=== PATIENT | male | born 1985 | race American Indian/Alaskan Native ===

== ENCOUNTER 2021-09-30 | Emergency (ER) | payer OTHER ==
[2021-09-30] MEDS ORDERED: ONDANSETRON 4 MG/2 ML INJ IV ONE (04:16)
[2021-09-30] MEDS ORDERED: FAMOTIDINE 20 MG/2 ML INJ IV ONE (04:16)
[2021-09-30] MEDS ORDERED: KETOROLAC 30 MG/1 ML INJ IV ONE (04:16)
--- NOTE | 2021-09-30 04:56 | XRay Report ---
CHEST 1 VIEW INDICATION / CLINICAL INFORMATION: cough. COMPARISON: None available. FINDINGS: SUPPORT DEVICES: None. HEART / MEDIASTINUM: No significant abnormality. LUNGS / PLEURA: No significant pulmonary or pleural abnormality. No pneumothorax. ADDITIONAL FINDINGS: No significant additional findings. IMPRESSION: 1. No acute findings. Signer Name: Chastity De La Cruz MD Signed: 09/30/2021 4:52 AM Workstation Name: [id number]
[2021-09-30 05:01] LABS: Basophils % (Auto) 0.5 % (0.0-1.8); Eosinophils # (Auto) 0.1 K/mm3 (0.0-0.4); Eosinophils % (Auto) 1.5 % (0.0-4.3); Lymphocytes # (Auto) 1.6 K/mm3 (1.2-5.4); Lymphocytes % (Auto) 34.2 % (13.4-35.0); Mean Corpuscular HGB Conc 31 % (32-34); Mean Corpuscular Volume 75 fl (84-94); Monocytes # (Auto) 0.4 K/mm3 (0.0-0.8); Monocytes % (Auto) 9.5 % (0.0-7.3); Platelet Count 255 K/mm3 (140-440); Red Blood Count 6.07 M/mm3 (3.65-5.03); Red Cell Distribution Width 16.4 % (13.2-15.2)
[2021-09-30 05:06] LABS: Hemoglobin 14.1 gm/dl (11.8-15.2)
[2021-09-30 05:07] LABS: Hematocrit 45.8 % (35.5-45.6)
[2021-09-30 05:23] LABS: BUN/Creatinine Ratio 15
[2021-09-30 05:35] LABS: Alanine Aminotransferase 20 units/L (7-56); Albumin 4.7 g/dL (3.9-5); Blood Urea Nitrogen 16 mg/dL (9-20); Calcium 9.7 mg/dL (8.4-10.2); Hemolysis Index 8
--- NOTE | 2021-09-30 07:52 | Emergency Department Report ---
<YASMANI LOVE - Last Filed: 09/30/21 07:48> ED N/V/D HPI - General Chief complaint: Nausea/Vomiting/Diarrhea Stated complaint: NOT FEELING WELL Source: patient Mode of arrival: Ambulatory Limitations: No Limitations - History of Present Illness Initial comments: Patient is a 36-year-old -Maltese male with no past medical history presented to the ED with complaint of acute onset persistent nausea and vomiting, diffuse body aches and pains, persistent dry cough, nasal and sinus congestion for the last 3 days after attending a constitution party and eating and drinking during the constitution party. Patient states that other people who attended the constitution party have had similar symptoms. Patient also states that he suspected that he may have been poisoned while at that constitution party and wanted to be evaluated for any exposure to any known drugs. Patient denies dizziness, syncope, chest pain, shortness of breath, fever, chills, sore throat, hematuria, testicular pain, dysuria, urinary frequency and urgency, penile discharge or testicular pain. MD complaint: nausea, vomiting, other (Diffuse body aches and pains, headache, persistent dry cough) -: Sudden, days(s) (3) Description of Vomiting: food contents, watery, bilious Associated Abdominal Pain: No Location: diffuse Radiation: none Severity: moderate Pain Scale: 5 Quality: aching, dull Consistency: intermittent Improves with: none Worsens with: eating, vomiting Context: possible food poisoning Associated Symptoms: denies other symptoms, myalgias, cough, headaches, loss of appetite, malaise, nausea/vomiting. denies: chest pain, diaphoresis, fever/chills, rash, dysuria, shortness of breath, syncope, weakness - Related Data Allergies Allergy/AdvReac Type Severity Reaction Status Date / Time Penicillins Allergy Anaphylaxis Verified 09/30/21 05:06 ED Review of Systems Constitutional: malaise, weakness. denies: chills, fever Eyes: denies: eye pain, eye discharge, vision change ENT: congestion. denies: ear pain, throat pain Respiratory: cough. denies: shortness of breath, wheezing Cardiovascular: denies: chest pain, palpitations Endocrine: no symptoms reported Gastrointestinal: nausea, vomiting. denies: abdominal pain, diarrhea Genitourinary: denies: urgency, dysuria Musculoskeletal: arthralgia, myalgia. denies: back pain, joint swelling Skin: denies: rash, lesions Neurological: headache. denies: weakness, paresthesias Psychiatric: denies: anxiety, depression Hematological/Lymphatic: denies: easy bleeding, easy bruising ED Past Medical Hx - Past Medical History Previous Medical History?: No - Surgical History Past Surgical History?: Yes Additional Surgical History: L humerus bone fx repair ED Physical Exam - General Limitations: No Limitations General appearance: alert, in no apparent distress, anxious - Head Head exam: Present: atraumatic, normocephalic, normal inspection - Eye Eye exam: Present: normal appearance, PERRL, EOMI Pupils: Present: normal accommodation - ENT ENT exam: Present: normal exam, normal orophraynx, mucous membranes moist, TM's normal bilaterally, normal external ear exam - Neck Neck exam: Present: normal inspection, full ROM. Absent: tenderness - Respiratory Respiratory exam: Present: normal lung sounds bilaterally. Absent: respiratory distress, wheezes, rales, rhonchi, chest wall tenderness, accessory muscle use, prolonged expiratory, other - Cardiovascular Cardiovascular Exam: Present: regular rate, normal rhythm, normal heart sounds. Absent: systolic murmur, diastolic murmur, rubs, gallop - GI/Abdominal GI/Abdominal exam: Present: soft, normal bowel sounds. Absent: tenderness, guarding, rebound, hyperactive bowel sounds, hypoactive bowel sounds - Extremities Exam Extremities exam: Present: normal inspection, full ROM, normal capillary refill - Back Exam Back exam: Present: normal inspection, full ROM. Absent: tenderness, CVA tenderness (R), CVA tenderness (L), muscle spasm, vertebral tenderness - Neurological Exam Neurological exam: Present: alert, oriented X3, CN II-XII intact, normal gait, reflexes normal - Psychiatric Psychiatric exam: Present: normal affect, normal mood - Skin Skin exam: Present: warm, dry, intact, normal color. Absent: rash ED Medical Decision Making - Lab Data Result diagrams: 09/30/21 04:40 09/30/21 04:40 - Radiology Data [facility] [address] [place] [address] XRay Report Signed Patient: AYDEE OCHOA MR#: [id number] 43 : 1985 Acct:[id number] Age/Sex: 36 / M ADM Date: 09/30/21 Loc: ED Attending Dr: Ordering Physician: HARJEET COSBY Date of Service: 09/30/21 Procedure(s): XR chest 1V ap Accession Number(s): [id number] cc: HARJEET COSBY Fluoro Time In Minutes: CHEST 1 VIEW INDICATION / CLINICAL INFORMATION: cough. COMPARISON: None available. FINDINGS: SUPPORT DEVICES: None. HEART / MEDIASTINUM: No significant abnormality. LUNGS / PLEURA: No significant pulmonary or pleural abnormality. No pneumothorax. ADDITIONAL FINDINGS: No significant additional findings. IMPRESSION: 1. No acute findings. Signer Name: Chastity De La Cruz MD Signed: 09/30/2021 4:52 AM Workstation Name: [id number] Transcribed By: JR Dictated By: Chastity De La Cruz MD Electronically Authenticated By: Chastity De La Cruz MD Signed Date/Time: 09/30/21451 DD/ 0 TD/TT: - Medical Decision Making This is a 36-year-old -Maltese male with no past medical history p resented to the ED with complaint of acute onset persistent nausea and vomiting, diffuse body aches and pains, persistent dry cough, nasal and sinus congestion for the last 3 days after attending a constitution party and eating and drinking during the constitution party. Patient states that other people who attended the constitution party have had similar symptoms. Patient also states that he suspected that he may have been poisoned while at that constitution party and wanted to be evaluated for any exposure to any known drugs. In the ED, patient is alert and oriented x3 and is not in any distress. Patient is hemodynamically stable. Patient was treated for pain also given antiemetics and antacids. Lab test results were reviewed and are all nonactionable but urinalysis and urine drug screen are pending. Chest x-ray showed no acute cardiopulmonary abnormalities or pneumonitis. Patient care was transferred to Ms. Sheryl GARNETT at shift change who shall review lab test results and disposition the patient accordingly. Patient was advised return to the ED immediately if symptoms get worse. - Differential Diagnosis Viral gastroenteritis; URI; COVID-19; bronchitis; dehydration ED Disposition Clinical Impression: Viral gastroenteritis, Nausea and vomiting in adult, Cocaine abuse Disposition: HOME / SELF CARE / HOMELESS Is pt being admited?: No Does the pt Need Aspirin: No Condition: Stable Instructions: Viral Gastroenteritis, Adult, [id number], Nausea and Vomiting, Adult, [id number] Additional Instructions: Labs are stable urine shows you have cocaine in your system. Chest x-ray is normal. Increase your fluids. Follow up with your doctor. Referrals: [facility] [Provider Group] - 3-5 Days Forms: Work/School Release Form(ED) <FRANCESORLANDOGONZALES' M - Last Filed: 09/30/21 10:06> ED Review of Systems ROS: Stated complaint: NOT FEELING WELL Other details as noted in HPI ED Course Vital Signs 09/30/21 02:14 Temperature 98.4 F Pulse Rate 67 Respiratory 18 Rate Blood Pressure 129/75 [Right] O2 Sat by Pulse 98 Oximetry ED Medical Decision Making - Lab Data Result diagrams: 09/30/21 04:40 09/30/21 04:40 Critical care attestation.: If time is entered above; I have spent that time in minutes in the direct care of this critically ill patient, excluding procedure time. ED Disposition Is pt being admited?: No Does the pt Need Aspirin: No Time of Disposition: 10:02
[2021-09-30 07:58] LABS: Bilirubin,Urine NEG (Negative); Blood,Urine NEG (Negative); Color,Urine Yellow (Yellow); Mucus,Urine 3+ /HPF; Urobilinogen,Urine < 2.0 mg/dL (<2.0)
[2021-09-30 08:03] LABS: Amphetamine Screen,Urine Negative; Benzodiazepines Screen,Urine Negative; Cannabinoid Screen,Urine Negative; Methadone Screen,Urine Negative; Opiate Screen,Urine Negative
[2021-09-30 08:35] LABS: Cocaine Screen,Urine Positive
[2021-09-30 10:41] VITALS: BP 110/71
== END 2021-09-30 10:41 | disposition home or self-care (01) ==
LOC: ED
DX: A08.4 Viral intestinal infection, unspecified (principal); R11.2 Nausea with vomiting, unspecified; F14.10 Cocaine abuse, uncomplicated; Z98.890 Other specified postprocedural states; Z88.0 Allergy status to penicillin; Z79.899 Other long term (current) drug therapy
CPT/HCPCS: 36415; 71045; 80053; 80307; 81001; 85025; 96374; 96375; 99284; J1885; J2405; J3490